=== PATIENT | male | born 1995 | race Two or more races ===

== ENCOUNTER 2021-02-19 13:38 | Emergency (ER) | payer OTHER ==
[~2021-02-19] VITALS: Ht 162.6 cm; Wt 87.1 kg
[2021-02-19 14:30] VITALS: BP 121/86
[2021-02-19] MEDS ORDERED: IBUPROFEN 800 MG TAB PO ONE (14:30)
== END 2021-02-19 15:24 | disposition home or self-care (01) ==
LOC: ER 13:38
DX: S39.012A Strain of muscle, fascia and tendon of lower back, initial encounter (principal); V49.49XA Driver injured in collision with other motor vehicles in traffic accident, initial encounter; Y93.89 Activity, other specified; Y92.488 Other paved roadways as the place of occurrence of the external cause; Y99.8 Other external cause status

== ENCOUNTER 2024-07-21 15:33 | Emergency (ER) | payer SELFPAY ==
[~2024-07-21] VITALS: Ht 177.8 cm; Wt 82.0 kg
[2024-07-21] MEDS: MORPHINE SULFATE 4 MG/ML SYR/VIAL IV ONE (16:08)
[2024-07-21] MEDS: ONDANSETRON HCL 4 MG/2 ML VIAL IV ONE (16:09)
[2024-07-21] MEDS: VANCOMYCIN 1GM/200ML PREMIX 200 ML IV ONE (16:21)
[2024-07-21] MEDS: LIDOCAINE 1% HCL (LOCAL ANESTH.) INJ 20ML MDV ONE (17:03)
[2024-07-21 17:05] VITALS: PULSE 67; RESP 21; O2SAT 98
[2024-07-21] MEDS ORDERED: HYDR-4902 PO (19:05)
[2024-07-21] MEDS ORDERED: AMOX875T4 PO (19:05)
[2024-07-21 19:33] VITALS: BP 167/50; PULSE 64; RESP 13; O2SAT 96
== END 2024-07-21 20:09 | disposition home or self-care (01) ==
LOC: ER 15:33
DX: S68.625A Partial traumatic transphalangeal amputation of left ring finger, initial encounter (principal); I10 Essential (primary) hypertension; Z88.0 Allergy status to penicillin; W23.0XXA Caught, crushed, jammed, or pinched between moving objects, initial encounter; Y92.89 Other specified places as the place of occurrence of the external cause; Y93.89 Activity, other specified
CPT/HCPCS: 29130; 73120; 96365; 96366; 96375; 99285; J2003; J2270; J2405; J3370